=== PATIENT | female | born 1930 | race Caucasian/White ===

== ENCOUNTER → 2017-07-26 | Outpatient (CLI) | payer MEDICARE | END | disposition home or self-care (01) | LOC: ECHO 09:37 | DX: I08.1 Rheumatic disorders of both mitral and tricuspid valves (principal); I31.3 Pericardial effusion (noninflammatory); Z95.2 Presence of prosthetic heart valve | CPT/HCPCS: 93306 ==

== ENCOUNTER → 2018-07-25 | Outpatient (CLI) | payer MEDICARE ==
[~2018-07-25] MED LIST: ASPI-630 PO; ATEN50TA PO; CHOL400C PO; EZET1TAB30 PO; LEVO100T5 PO; LEXAPRO10 MG PO; LORA0.5T96 PO; MELO7.5T5 PO; NIAC500C PO; OMEG1CAP6 PO; OSTEO BI-FLEX1 EAC1 PO; REGADENOSON 0.4 MG/5 ML DISP.SYRIN. IV ONE
--- NOTE | 2018-07-25 16:05 | RAD ---
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 Consent: The procedure was explained to the patient in lay terms. Informed consent was witnessed. Daniel eout was entered into [employer]. History and Stress Test performed by RT Navin (R) (N) Pharm. Details Pharmacologic stress testing was performed using 0.4mg per 5ml of regadenoson given intravenously ove r 7-10 seconds. Stress Symptoms Slight headache. POST EXERCISE Reason for Termination: Infusion complete Target HR: No Max HR: 63 bpm Max Blood Pressure: 199/59mmHg Blood Pressure response to exercise: Normal blood pressure response during stress. Heart Rate response to exercise: Abnormal Chest Pain: No. Arrhythmia: No. ST Change: No. INTERPRETATION Stress EKG Conclusion: Baseline EKG showed sinus rhythm. No ischemic changes at peak stress. No arr hythmias. Imaging Protocol IMAGE PROTOCOL: Rest Tc-99m/stress Tc-99m 1 day Rest: Stress: Viability: Radiopharm.Tc99m DeyepnqieIa98w Sestamibi Dose9.8mCi 33mCi Duration 13min. 13min. Img Date 07/25/2018 07/25/2018 Inj-Img Ngxh67mzb. 60min. Rest Admin Site:IV - Right AntecubitalAdministrator:JOLENE Michele Stress Admin Site: IV - Right AntecubitalAdministrator: JOLENE Michele STRESS DATA End Diast. Vol.67.0mlLVEDV index BSA38.0ml End Syst. Vol.9.0mlLVESV index BSA5.0ml Myocardial Ihzj216.0gEject. Ccuryezc17.0% Stress Scores Regional WT2.00Summed WT13.00 Regional WM0.00Summed WM0.00 Study quality was good. Left Ventricular size was Normal at Rest and Stress. Lung uptake was . Left Ventricular ejection fraction is 87%. The rest and stress images show normal perfusion, normal contraction and thickening. LV Perf. Quant 17 Seg. SSS1.00 17 Seg. SRS0.00 17 Seg. SDS1.00 Stress Defect Extent (% LAD)0.00Rest Defect Extent (% LAD)0.00Rev. Defect Extent (% LAD)0.00 Stress Defect Extent (% LCX) 16.30Rest Defect Extent (% LCX)5.00Rev. Defect Extent (% LCX)16.30 Stress Defect Extent (% RCA)0.00Rest Defect Extent (% RCA)0.00Rev. Defect Extent (% RCA)0.00 Stress Defect Extent (% SRINATH)2.80Rest Defect Extent (% SRINATH)0.90Rev. Defect Extent (% SRINATH)2.80 Conclusion 1. Regadenoson cardioisotope stress test did not show any evidence of ischemia or infarct. 2. Normal left ventricular systolic function with ejection fraction calculated at 87%. 3. Low risk for cardiac events. Signed by : Valeriano Cardoso, Electronically Approved : 07/25/2018 16:05:03
--- NOTE | 2018-07-29 22:14 | RAD ---
MR#: [id number] Date of Study: 07/25/2018 Ordering Physician: GEORGE TAI, Referring Physician: GEORGE TAI, Tech: Phoebe Ortega RVT, PÉREZ APPROVED REPORT Patient Location: OUT-PATIENT Laterality:Bilateral Indications Syncope Risk Factors Hypertension: Doppler Spectral Velocity Analysis Right Left pCCA 58/11 cm/spCCA 56/13 cm/s mCCA 46/11 cm/smCCA 54/12 cm/s dCCA 48/11 cm/sdCCA 54/13 cm/s ECA 64/7 cm/sECA 53/9 cm/s pICA 50/13 cm/spICA 53/16 cm/s [place] 65/21 cm/smICA 56/17 cm/s dICA 86/34 cm/sdICA 60/19 cm/s Vert. 39/ cm/sVert. 43/ cm/s ICA/CCA 1.48ICA/CCA 1.07 Findings Grayscale images of the bilateral carotid vessels reveals mild intimal hyperplasia and minimal plaque . Velocities are as noted above. No significant obstruction is noted by velocity criteria. Overall 0 to less than 50% stenosis. Normal antegrade velocities bilaterally. Normal ICA to CCA ratios bilatera lly. Critical Notification Critical Value: No <Conclusion> No significant carotid occlusive disease bilaterally. Signed by : George Tai, Electronically Approved : 07/29/2018 22:14:00
== END | disposition home or self-care (01) ==
LOC: NM 08:52
PROVIDERS: ATTEND Internal Medicine Cardiovascular Disease
DX: R06.00 Dyspnea, unspecified (principal); R53.83 Other fatigue; R55 Syncope and collapse; I10 Essential (primary) hypertension; Z95.1 Presence of aortocoronary bypass graft
CPT/HCPCS: 78452; 93017; 93880; A9500; J2785

== ENCOUNTER → 2018-09-12 | Outpatient (CLI) | payer MEDICARE ==
[~2018-09-12] MED LIST changes: -REGADENOSON 0.4 MG/5 ML DISP.SYRIN. IV ONE
--- NOTE | 2018-09-12 15:52 | CARD ---
MR#: [id number] Date of Study: 09/12/2018 Ordering Physician: GEORGE MADISON, Referring Physician: GEORGE MADISON, Tech: Elida Coffey APPROVED REPORT EXAM: Two-dimensional and M-mode echocardiogram with Doppler and color Doppler. 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 Date: RISK FACTORS Hypertension Hyperlipidemia 2D DIMENSIONS RVDd3.3 (2.9-3.5cm)Left Atrium(2D)4.4 (1.6-4.0cm) IVSd1.2 (0.7-1.1cm)Aortic Root(2D)2.5 (2.0-3.7cm) LVDd4.2 (3.9-5.9cm)LVOT Diameter1.9 (1.8-2.4cm) PWd1.0 (0.7-1.1cm)LVDs2.4 (2.5-4.0cm) FS (%) 43.3 %SV58.5 ml LVEF(%)74.8 (>50%) Aortic Valve AoV Peak Skip.215.5cm/sAoV VTI50.0cm AO Peak GR.18.6mmHgLVOT Peak Skip.81.5cm/s LVOT VTI 22.40cmAO Mean GR.10mmHg JAYLON (VMAX)0.91da0KQS (VTI)1.23cm2 Mitral Valve MV E Lyqlyqbk81.7cm/sMV DECEL DCSW193qf MV A Tedsufsh05.3cm/sMV PIQ155cz E/A Ratio0.8MVA (PHT)1.90cm2 Pulmonary Valve PV Peak Icxshdzn84.1cm/sPV Peak Grad.4mmHg Tricuspid Valve TR P. Arripvso116mj/sRAP RHUJPYOO4zuQh TR Peak Gr.56xyBoFSNB62lzYq Pulmonary Vein S1 Agegecxd94.2cm/sD2 Zfirgyxv63.2cm/s PVa fdjsiukh517fxpc LEFT VENTRICLE The left ventricle is normal size. There is mild to moderate concentric left ventricular hypertrophy. The left ventricular systolic function is normal. The Ejection Fraction is 60-65%. There is normal L V segmental wall motion. Transmitral Doppler flow pattern is Grade I-abnormal relaxation pattern. RIGHT VENTRICLE The right ventricle is normal size. There is normal right ventricular wall thickness. The right ventr icular systolic function is normal. ATRIA The left atrium is mildly dilated. The right atrium size is normal. The interatrial septum is intact with no evidence for an atrial septal defect or patent foramen ovale as noted on 2-D or Doppler imagi ng. AORTIC VALVE Doppler and Color Flow revealed no significant aortic regurgitation. There is no significant aortic v alvular stenosis. There are normal prosthetic aortic valve gradients. The bioprosthetic aortic valve appears normal. MITRAL VALVE The mitral valve is normal in structure and function. There is no evidence of mitral valve prolapse. There is no mitral valve stenosis. Doppler and Color-flow revealed trace mitral regurgitation. TRICUSPID VALVE The tricuspid valve is normal in structure and function. Doppler and Color Flow revealed trace to mil d tricuspid regurgitation with an estimated PAP of 33 mmHg. There is no tricuspid valve stenosis. GREAT VESSELS The aortic root is normal in size. The IVC is normal in size and collapses >50% with inspiration. PERICARDIAL EFFUSION There is no evidence of significant pericardial effusion. Critical Notification Critical Value: No <Conclusion> The left ventricular systolic function is normal. The Ejection Fraction is 60-65%. There is normal LV segmental wall motion. Transmitral Doppler flow pattern is Grade I-abnormal relaxation pattern. The bioprosthetic aortic valve appears well seated and functioning well. Trace mitral regurgitation. Trace to mild tricuspid regurgitation with an estimated PAP of 33 mmHg. There is no evidence of significant pericardial effusion. Signed by : Valeriano Cardoso, Electronically Approved : 09/12/2018 15:51:51
== END | disposition home or self-care (01) ==
LOC: ECHO 14:14
PROVIDERS: ATTEND Internal Medicine Cardiovascular Disease
DX: I07.1 Rheumatic tricuspid insufficiency (principal); Z95.2 Presence of prosthetic heart valve
CPT/HCPCS: 93306

== ENCOUNTER → 2020-06-17 | Outpatient (CLI) | payer MEDICARE ==
--- NOTE | 2020-06-17 13:56 | CARD ---
MR#: [id number] Date of Study: 06/17/2020 Ordering Physician: GEORGE MADISON, Referring Physician: GEORGE MADISON, Tech: Elida Coffey, [facility] APPROV[facility] REPORT EXAM: Two-dimensional and M-mode echocardiogram with Doppler and color Doppler. 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 Date: 2012 RISK FACTORS Hypertension Hyperlipidemia 2D DIMENSIONS RVDd4.1 (2.9-3.5cm)Left Atrium(2D)3.7 (1.6-4.0cm) IVSd1.1 (0.7-1.1cm)Aortic Root(2D)2.4 (2.0-3.7cm) LVDd4.4 (3.9-5.9cm)LVOT Diameter1.9 (1.8-2.4cm) PWd0.9 (0.7-1.1cm)LVDs2.9 (2.5-4.0cm) FS (%) 35.4 %SV57.5 ml Aortic Valve AoV Peak Skip.222.2cm/sAoV VTI52.7cm AO Peak GR.19.8mmHgLVOT Peak Skip.124.9cm/s LVOT VTI 30.22cmAO Mean GR.11mmHg JAYLON (VMAX)1.73ov3GST (VTI)1.62cm2 Mitral Valve MV E Xnzifcmg95.8cm/sMV DECEL CVBS541mx MV A Cjktxvle439.3cm/sMV BWB667kc E/A Ratio0.8MVA (PHT)1.58cm2 TDI E/Lateral E'10.7E/Medial E'14.3 Pulmonary Valve PV Peak Iiohprmv53.0cm/sPV Peak Grad.2mmHg Tricuspid Valve TR P. Lgxplsqt642ff/sRAP YRJGNYZU6gsJh TR Peak Gr.96leJnAOPI63bwIv Pulmonary Vein S1 Ftwnmhlt53.6cm/sD2 Bcueeypv02.2cm/s PVa kqzussfd423fnkb LEFT VENTRICLE The left ventricle is normal size. There is normal left ventricular wall thickness. The left ventricu lar systolic function is normal and the ejection fraction is within normal range. The Ejection Fracti on is 55-60%. There is normal LV segmental wall motion. Transmitral Doppler flow pattern is Grade I-a bnormal relaxation pattern. RIGHT VENTRICLE The right ventricle is normal size. There is normal right ventricular wall thickness. The right ventr icular systolic function is normal. ATRIA The left atrium size is normal. The right atrium size is normal. The interatrial septum is intact wit h no evidence for an atrial septal defect or patent foramen ovale as noted on 2-D or Doppler imaging. AORTIC VALVE Doppler and Color Flow revealed trace aortic regurgitation. Calculated aortic valve area is 1.44 cm2 with maximum pressure gradient of 26 mmHg and mean pressure gradient of 13 mmHg. There is a bioprosth etic aortic valve prosthesis. The prosthetic aortic valve appears normal. MITRAL VALVE The mitral valve is mildly thickened. There is no evidence of mitral valve prolapse. There is no mitr al valve stenosis. Doppler and Color-flow revealed mild mitral regurgitation. TRICUSPID VALVE The tricuspid valve is normal in structure and function. Doppler and Color Flow revealed trace tricus pid regurgitation. There is no tricuspid valve stenosis. PULMONIC VALVE The pulmonic valve is not well visualized. Doppler and Color Flow revealed trace pulmonic valvular re gurgitation. GREAT VESSELS The aortic root is normal in size. The IVC is normal in size and collapses >50% with inspiration. PERICARDIAL EFFUSION There is no evidence of significant pericardial effusion. Critical Notification Critical Value: No <Conclusion> The left ventricle is normal size. The left ventricular systolic function is normal and the ejection fraction is within normal range. The Ejection Fraction is 55-60%. There is a bioprosthetic aortic valve prosthesis. The prosthetic aortic valve appears normal. Doppler and Color Flow revealed trace aortic regurgitation. Calculated aortic valve area is 1.44 cm2 with maximum pressure gradient of 26 mmHg and mean pressure gradient of 13 mmHg. Doppler and Color-flow revealed mild mitral regurgitation. Doppler and Color Flow revealed trace tricuspid regurgitation. Signed by : Wilber Gutierres MD Electronically Approved : 06/17/2020 13:55:58
== END ==
LOC: ECHO 10:41
PROVIDERS: ATTEND Internal Medicine Cardiovascular Disease
DX: I34.0 Nonrheumatic mitral (valve) insufficiency (principal); Z95.4 Presence of other heart-valve replacement
CPT/HCPCS: 93306